=== PATIENT | female | born 1955 | race Caucasian/White ===

== ENCOUNTER 2017-12-25 20:00 | Emergency (ER) | payer OTHER ==
--- OUTSIDE RECORDS SUMMARY | 2017-12-25 20:03 | XMS REPORT | Clinical Summary ---
:1955 Author Organization [facility] Address [address] [place] [id number] Phone Care Team Providers Name Role Phone Unavailable Primary Care Provider Unavailable Allergies No Known Allergies Current Medications No known medications Active Problems Not on file Encounters Date Type Specialty Care Team Description 07/25/2017 Emergency Emergency Medicine Moises Quesada DO Acute URI ( Primary Dx) after 12/24/2016 Social History Tobacco Use Types Packs/Day Years Used Date Never Smoker Smokeless Tobacco: Never Used Alcohol Use Drinks/Week oz/Week Comments Yes Sex Assigned at Date Recorded Not on file Last Filed Vital Signs Vital Sign Reading Time Taken Blood Pressure 127/76 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 INDICATION: 61-year-old woman with influenza. COMPARISON: None. FINDINGS: LINES/TUBES: None. LUNGS: Nodular density projects over the left lower lung zone. The lungs are otherwise well inflated and clear. PLEURA: No pleural effusion or pneumothorax. HEART AND MEDIASTINUM: The cardiomediastinal silhouette is within normal limits. SOFT TISSUES AND BONES: Unremarkable. IMPRESSION: No acute cardiopulmonary abnormalities. Nodular density projecting over the left lower lung zone may represent nipple shadow, however pulmonary nodule cannot be excluded. Follow-up chest radiographs with nipple markers may be obtained. Alternatively, chest CT may be obtained. Signed: Luisa Tam MD Report Verified Date/Time:07/25/2017 12:47:21 Reading Location: [facility] C013Y CT Body Reading Room Procedure Note Interface, External Ris In - 07/25/2017 12:49 PM PIPE LINE INSPECTOR FINAL REPORT TECHNIQUE: Frontal and lateral views of the chest. INDICATION: 61-year-old woman with influenza. COMPARISON: None. FINDINGS: LINES/TUBES: None. LUNGS: Nodular density projects over the left lower lung zone. The lungs are otherwise well inflated and clear. PLEURA: No pleural effusion or pneumothorax. HEART AND MEDIASTINUM: The cardiomediastinal silhouette is within normal limits. SOFT TISSUES AND BONES: Unremarkable. IMPRESSION: No acute cardiopulmonary abnormalities. Nodular density projecting over the left lower lung zone may represent nipple shadow, however pulmonary nodule cannot be excluded. Follow-up chest radiographs with nipple markers may be obtained. Alternatively, chest CT may be obtained. Signed: Luisa Tam MD Report Verified Date/Time: 07/25/2017 12:47:21 Reading Location: [facility] C013Y CT Body Reading Room Rapid Influenza A&B Screen (07/25/2017 11:35 AM) Component Value Ref Range Rapid Influenza A Antigen Negative Negative, Inconclusive Rapid influenza B Antigen Negative Negative, Inconclusive Specimen Performing Laboratory Nasopharyngeal - Nasopharyngeal Swab [facility] [address] [place] [id number] after 12/24/2016
--- OUTSIDE RECORDS SUMMARY | 2017-12-25 20:03 | XMS REPORT ---
:1955 Author Organization [facility] Address [address] [place] [address] Dr. Rich [address] [place] [id number] Care Team Providers Name Role Phone REGI GOOD Unavailable Unavailable Problems This patient has no known problems. Allergies, Adverse Reactions, Alerts This patient has no known allergies or adverse reactions. Medications This patient has no known medications. Results Test Description Test Time Test Comments Text Results Atomic Results Result Comments RAD, CHEST, 2 2017-07-25 Reason for FINAL REPORT PATIENT ID: VIEWS 12:47:00 exam:->INFLUENZAat a [id number] TECHNIQUE: hospital since last week, Frontal and lateral views states has been feeling of the chest. INDICATION: bodyaches, headaches 61-year-old woman with congestion. influenza. COMPARISON: None. FINDINGS: LINES/TUBES: None. LUNGS: Nodular density projects over the left lower lung zone. The lungs are otherwise well inflated and clear. PLEURA: No pleural effusion or pneumothorax. HEART AND MEDIASTINUM: The cardiomediastinal silhouette is within normal limits. SOFT TISSUES AND BONES: Unremarkable. IMPRESSION:No acute cardiopulmonary abnormalities. Nodular density projecting over the left lower lung zone may represent nipple shadow, however pulmonary nodule cannot be excluded. Follow-up chest radiographs with nipple markers may be obtained. Alternatively, chest CT may be obtained. Signed: Luisa Tam MDReport Verified Date/Time: 07/25/2017 12:47:21 Reading Location: [facility] C013Y CT Body Reading Room D INFLUENZA A&B SCREEN 2017-07-25 12:11:00 Test Item Value Reference Range Comments RAPID INFLUENZA A AG (BEAKER) (test erpf=[id number]) Negative Negative, Inconclusive RAPID INFLUENZA B AG (BEAKER) (test rgfd=[id number]) Negative Negative, Inconclusive
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
== END 2017-12-25 21:16 | disposition home or self-care (01) ==
LOC: ER 20:00
DX: Z04.1 Encounter for examination and observation following transport accident (principal); V49.49XA Driver injured in collision with other motor vehicles in traffic accident, initial encounter; E78.5 Hyperlipidemia, unspecified
CPT/HCPCS: 99283

== ENCOUNTER 2020-05-22 15:46 | Emergency (ER) | payer OTHER ==
--- OUTSIDE RECORDS SUMMARY | 2020-05-22 15:48 | XMS REPORT | Clinical Summary ---
:1955 Author Organization [facility] Address [address] [place] [id number] Care Team Providers Name Role Phone Brando Primary Care Provider Allergies No Known Allergies Medications No known medications Active Problems Not on file Social History Tobacco Use Types Packs/Day Years Used Date Never Smoker Smokeless Tobacco: Never Used Alcohol Use Drinks/Week oz/Week Comments Yes Sex Assigned at Date Recorded Not on file Last Filed Vital Signs Not on file Plan of Treatment Not on file Results Not on fileafter 05/22/2019 Insurance Payer Benefit Plan / Subscriber ID Effective Dates Phone Addre ss Type Group [employer]ET[employer] - MGD AETNA HMO POS [id number] 2015-Present HMO/POS CARE QPOS
--- OUTSIDE RECORDS SUMMARY | 2020-05-22 15:48 | XMS REPORT | Continuity of Care Document ---
:1955 Author Organization [facility] Address [address] [place] [address] Care Team Providers Name Role Phone Matthieuóscar Primary Care Physician AHAALVIN Attending Clinician Unavailable Problems This patient has no known problems. Allergies, Adverse Reactions, Alerts This patient has no known allergies or adverse reactions. Social History Social Habit Start Date Stop Date Quantity Comments Source Sex Assigned At [facility] Tobacco use and 2017-07-25 2017-07-25 Never used [facility] - exposure 00:00:00 00:00:00 [facility] Alcohol intake 2017-07-25 2017-07-25 Current drinker [facility] [employer] - 00:00:00 00:00:00 of [facility] (finding) Smoking Status Start Date Stop Date Source Never smoker [facility] Medications This patient has no known medications. Procedures This patient has no known procedures. Results Test Description Test Time Test Comments Results Result [facility] e Comments RAD, CHEST, 2 2017-07-25 Reason for FINAL REPORT PATIENT VIEWS 12:47:00 exam:->INFLUENZ ID: [id number] Aat a hospital TECHNIQUE: Frontal and since last lateral views of the week, states chest. INDICATION: has been 61-year-old woman with feeling influenza. COMPARISON: bodyaches, None. FINDINGS: headaches LINES/TUBES: None. congestion. LUNGS: Nodular density projects over the left [...] Alternatively, chest CT may be obtained. Signed: Lesli Tam Verified Date/Time: 07/25/2017 12:47:21 Reading Location: [facility] B1 C013Y CT Body Reading Room D INFLUENZA A&B SCREEN 2017-07-25 12:11:00 Test Item Value Reference Range Interpretation Comme nts RAPID INFLUENZA A AG (BEAKER) (test code = 1622) Negative Negative, Inconclusive RAPID INFLUENZA B AG (BEAKER) (test code = 1623) Negative Negative, Inconclusive
--- NOTE | 2020-05-22 17:13 | RAD REPORT ---
EXAM DESCRIPTION: CT - CTHCSPWOC - 05/22/2020 5:04 pm CLINICAL HISTORY: fall, head injury COMPARISON: No comparisons TECHNIQUE: Axial 5 mm thick images of the head were obtained. Axial 2 mm thick images of the cervic al spine were obtained with sagittal and coronal reconstruction images generated and reviewed. All CT scans are performed using dose optimization technique as appropriate and may include automated exposure control or mA/KV adjustment according to patient size. FINDINGS: No intracranial hemorrhage, mass, edema or acute intracranial finding. No suspicion for ac cocopah infarction. No cortical edema or sulcal effacement. Mild atrophy changes are present. Ventricles are in proportion. No significant chronic ischemic change. Arterial and physiologic calcifications ar e present. Mastoid air cells are clear. Patient shows mixed acute and chronic right maxillary sinusit is. Wall thickening is present and there is inspissated mucus in addition to an air-fluid level. Patc hy mucosal thickening changes in the ethmoid air cells. Small air-fluid level in the sphenoid sinus w ithout suspicion for skull base fracture. No globe or orbit abnormality seen. No skull fracture. Cervical body height and alignment are normal. Patient has some component of disc space narrowing at all levels except C2-3. Findings are more pronounced at C5-6. Mild bilateral foraminal stenosis peraza es are present at C5-6 and C6-7. No facet joint alignment abnormality. No fracture or acute bony abno rmality. Central canal detail is inherently limited. No paraspinal mass or hematoma. IMPRESSION: No hemorrhage, edema or acute intracranial finding. Cervical spine degenerative change as detailed. No acute findings identified. Acute and chronic right maxillary sinusitis. Small sphenoid sinus air-fluid level is present without suspicion for skull base fracture.
--- NOTE | 2020-05-22 17:24 | ER ---
Nurse's Notes [facility] Name: Eliana Hercules Age: 64 yrs Sex: Female : 1955 Arrival Date: 05/22/2020 Time: 15:47 Bed 3 Private MD: Diagnosis: Unspecified injury of head Presentation: 05/22 15:52 Chief complaint: Patient states: fell down from the attic ladder, was about 6 steps up, sv hit the back of head on the cement. Denies LOC or vomiting. Not on any blood thinners. Coronavirus screen: Client denies travel out of the [place] in the last 14 days. At this time, the client does not indicate any symptoms associated with coronavirus-19. Ebola Screen: No symptoms or risks identified at this time. Risk Assessment: Do you want to hurt yourself or someone else? Patient reports no desire to harm self or others. Onset of symptoms was May 22, 2020. 15:52 Method Of Arrival: Ambulatory sv 15:52 Acuity: SHEILA 3 sv 15:53 Initial Sepsis Screen: Does the patient meet any 2 criteria? No. Patient's initial sv sepsis screen is negative. Does the patient have a suspected source of infection? No. Patient's initial sepsis screen is negative. Triage Assessment: 15:52 General: Appears in no apparent distress. well developed, Behavior is calm, sv cooperative, appropriate for age. Pain: Complains of pain in scalp. Neuro: Level of Consciousness is awake, alert, obeys commands, Oriented to person, place, time, situation, Moves all extremities. Full function Gait is steady. Respiratory: Respiratory effort is even, unlabored. Historical: - Allergies: 15:53 No Known Allergies; sv - PMHx: 15:53 Hyperlipidemia; sv 15:59 Hypertension; sv - PSHx: 15:53 ; sv - Immunization history:: Adult Immunizations. - Social history:: Smoking status: Patient denies any tobacco usage or history of. Screenin:22 Abuse screen: Denies threats or abuse. Nutritional screening: No deficits noted. ll1 Tuberculosis screening: No symptoms or risk factors identified. Fall Risk Mental Status- Overestimates/Forgets Limitations (15 pts.). Total Macias Fall Scale indicates No Risk (0-24 pts). Assessment: 16:21 General: Appears in no apparent distress. Behavior is calm, cooperative, appropriate ll1 for age. Pain: Denies pain. Neuro: Level of Consciousness is awake, alert, obeys commands, Oriented to person, place, time, situation, Appropriate for age Type Copyist are equal bilaterally Moves all extremities. Full function Speech is normal, Facial symmetry appears normal, Pupils are PERRLA, Reports headache hit back of head on concrete after falling down attic ladder stairs. Cardiovascular: No deficits noted. Respiratory: No deficits noted. GI: No deficits noted. Injury Description: Head injury sustained to scalp is closed, did not have loss of consciousness, was sustained 1-2 hours ago. 17:20 Reassessment: Patient and/or family updated on plan of care and expected duration. Pain ll1 level reassessed. Patient is alert, oriented x 3, equal unlabored respirations, skin warm/dry/pink. Vital Signs: 15:53 BP 149 / 92; Pulse 78; Resp 14; Temp 99.2(TE); Pulse Ox 98% ; Weight 79.38 kg; Height 5 sv ft. 6 in. (167.64 cm); 17:23 BP 143 / 78; Pulse 53; Resp 16; Pulse Ox 98% on R/A; ll1 17:39 BP 143 / 86; Pulse 53; Resp 16; Pulse Ox 99% ; Pain 0/10; ll1 15:53 Body Mass Index 28.25 (79.38 kg, 167.64 cm) sv ED Course: 15:47 Patient arrived in ED. ds1 15:51 Arm band placed on. sv 15:53 Triage completed. sv 15:58 Dustin Soliz PA is PHCP. [facility] 15:58 Robb Jordan MD is Attending Physician. [facility] 16:20 Russell Pérez, DENEEN is Primary Nurse. ll1 16:22 Patient has correct armband on for positive identification. Bed in low position. Call ll1 light in reach. Side rails up X 1. Cardiac monitoring not applicable on this patient. 17:04 CT Head C Spine In Process Unspecified. EDMS 17:39 No provider procedures requiring assistance completed. Patient did not have IV access ll1 during this emergency room visit. Administered Medications: No medications were administered Outcome: 17:24 Discharge ordered by . m 17:39 Discharged to home ambulatory. ll1 17:39 Condition: stable 17:39 Discharge instructions given to patient, Instructed on discharge instructions, follow up and referral plans. Demonstrated understanding of instructions, follow-up care. 17:40 Patient left the ED. ll1 Signatures: Dispatcher [employer] Viktoriya Alarcon, RN RN Dustin Soliz PA PA jmm Sanford, Radhika ds1 Russell Pérez RN RN ll1 Corrections: (The following items were deleted from the chart) 15:55 15:52 Chief complaint: Patient states: fell down from the attic ladder, was about 6 sv steps, hit the back of head on the cement. Denies LOC or vomiting. sv 15:55 15:53 Resp 14bpm; Pulse Ox 100%; Temp 99.2F Temporal; 79.38 kg; Height 5 ft. 6 in.; sv BMI: 28.2; sv 16:00 15:52 Chief complaint: Patient states: fell down from the attic ladder, was about 6 sv steps, hit the back of head on the cement. Denies LOC or vomiting. Not on any blood thinners. sv
--- NOTE | 2020-05-22 17:24 | EDPHYS ---
Physician Documentation [facility] Name: Eliana Hercules Age: 64 yrs Sex: Female : 1955 Arrival Date: 05/22/2020 Time: 15:47 Bed 3 Private MD: ED Physician Robb Jordan HPI: 05/22 16:32 This 64 yrs old Female presents to ER via Ambulatory with complaints of Fell jmm Off Ladder. 16:32 The patient or guardian reports injury. Onset: The symptoms/episode began/occurred jmm acutely, just prior to arrival. Associated signs and symptoms: Loss of consciousness: This patient did not experience any loss of consciousness. Pertinent negatives: the patient has not experienced a loss of conciousness, vomiting. This is a 64 year old female with a history of hlp, htn that presents to the ED with complaints of pain to the back of her head. Patient states she fell backwards while walking down the ladder to the attic. Denies loc, vomiting seizure like activity. . Historical: - Allergies: 15:53 No Known Allergies; sv - PMHx: 15:53 Hyperlipidemia; sv 15:59 Hypertension; sv - PSHx: 15:53 ; sv - Immunization history:: Adult Immunizations. - Social history:: Smoking status: Patient denies any tobacco usage or history of. ROS: 16:32 Constitutional: Negative for fever, chills, and weight loss, Cardiovascular: Negative jmm for chest pain, palpitations, and edema, Respiratory: Negative for shortness of breath, cough, wheezing, and pleuritic chest pain. 16:32 Neuro: Positive for headache. 16:32 All other systems are negative. Exam: 16:32 Constitutional: This is a well developed, well nourished patient who is awake, alert, jmm and in no acute distress. 16:32 Eyes: EOMI, no conjunctival erythema appreciated ENT: Moist Mucus Membranes Neck: Trachea midline, Supple Chest/axilla: Normal chest wall appearance and motion. Cardiovascular: Regular rate and rhythm. No edema appreciated Respiratory: Normal respirations, no respiratory distress appreciated Abdomen/GI: Non distended, soft Back: Normal ROM Skin: General appearance color normal MS/ Extremity: Moves all extremities, no obvious deformities appreciated, no edema noted to the lower extremities Neuro: Awake and alert, normal gait Psych: Behavior is normal, Mood is normal, Patient is cooperative and pleasant 16:32 Head/face: posterior hematoma noted. Vital Signs: 15:53 BP 149 / 92; Pulse 78; Resp 14; Temp 99.2(TE); Pulse Ox 98% ; Weight 79.38 kg; Height 5 sv ft. 6 in. (167.64 cm); 17:23 BP 143 / 78; Pulse 53; Resp 16; Pulse Ox 98% on R/A; ll1 17:39 BP 143 / 86; Pulse 53; Resp 16; Pulse Ox 99% ; Pain 0/10; ll1 15:53 Body Mass Index 28.25 (79.38 kg, 167.64 cm) sv MDM: 16:14 Patient medically screened. [facility] 17:22 Data reviewed: vital signs, nurses notes. Counseling: I had a detailed discussion with kvng the patient and/or guardian regarding: the historical points, exam findings, and any diagnostic results supporting the discharge/admit diagnosis, radiology results, the need for outpatient follow up, to return to the emergency department if symptoms worsen or persist or if there are any questions or concerns that arise at home. ED course: Patient is alert and non toxic in appearance. No neuro deficit appreciated. CT negative. Patient is given strict return precautions. Patient understood and agrees with the plan of care. . 05/22 16:17 Order name: CT Head C Spine; Complete Time: 17:22 juanis Administered Medications: No medications were administered Disposition: 05/23 15:57 Co-signature as Attending Physician, Robb Jordan MD I agree with the assessment and kdr plan of care. Disposition: 05/22/20 17:24 Discharged to Home. Impression: Unspecified injury of head. - Condition is Stable. - Discharge Instructions: Head Injury, Adult. - Medication Reconciliation Form, Thank You Letter, Antibiotic Education, Prescription Opioid Use form. - Follow up: Private Physician; When: 2 - 3 days; Reason: Recheck today's complaints, Continuance of care, Re-evaluation by your physician. Signatures: Dispatcher [employer] EDViktoriya Hagan RN RN sv Rittger, Kevin, MD MD kdr Mickail, Joel, PA PA jmm Lewis, Lynsay RN RN ll1 Corrections: (The following items were deleted from the chart) 05/22 17:40 17:24 05/22/2020 17:24 Discharged to Home. Impression: Unspecified injury of head. ll1 Condition is Stable. Forms are Medication Reconciliation Form, Thank You Letter, Antibiotic Education, Prescription Opioid Use. Follow up: Private Physician; When: 2 - 3 days; Reason: Recheck today's complaints, Continuance of care, Re-evaluation by your physician. kvng
[2020-05-22 18:20] VITALS: TEMP 99.2
[2020-05-22 18:23] VITALS: BP 143/86; O2SAT 99
== END 2020-05-22 17:40 | disposition home or self-care (01) ==
LOC: ER 15:46
DX: S00.83XA Contusion of other part of head, initial encounter (principal); W11.XXXA Fall on and from ladder, initial encounter; Y93.89 Activity, other specified; Y92.9 Unspecified place or not applicable; I10 Essential (primary) hypertension
CPT/HCPCS: 70450; 72125; 99283

== ENCOUNTER 2021-01-02 19:27 | Emergency (ER) | payer BC, OTHER ==
[2021-01-02 21:03] LABS: Absolute Lymphocytes (CBC) 2.7 K/uL (0.7-4.9); Basophils % 1.2 % (0-1.3); Lymphocytes % 35.8 % (15.3-44.8); MPV 12.3 fL (7.6-11.3); RBC Red Blood Cell Count 4.38 M/uL (3.86-4.86)
[2021-01-02 21:13] LABS: Protime INR 0.99
[2021-01-02 21:28] LABS: ALT/SGPT 34 U/L (12-78); AST/SGOT 18 U/L (15-37); Albumin 3.8 g/dL (3.4-5.0); Alkaline Phosphatase 81 U/L (45-117); BUN Blood Urea Nitrogen 19 mg/dL (7-18); Bicarbonate 26 mmol/L (21-32); Bilirubin Direct < 0.1 mg/dL (0-0.2); Bilirubin Total 0.2 mg/dL (0.2-1.0); Glucose Level 137 mg/dL (74-106); Magnesium 2.1 mg/dL (1.8-2.4); NT PRO-BNP 74 pg/mL (<125); Potassium 3.7 mmol/L (3.5-5.1); Protein, Total 7.2 g/dL (6.4-8.2); Sodium Level 140 mmol/L (136-145); Troponin (Emerg Dept Use Only) < 0.02 ng/mL (0.0-0.045)
[2021-01-02 21:38] LABS: Blood Morphology Comment NOT SEEN (NOT SEEN); Platelet Estimate DECR; Platelets, Giant 1+; White Blood Cell Scan OK (OK)
[2021-01-02 22:01] LABS: Urine Blood Negative (Negative); Urine Glucose Negative (Negative); Urine Protein Negative (Negative)
--- NOTE | 2021-01-02 22:46 | ER ---
Nurse's Notes [facility] Name: Eliana Hercules Age: 65 yrs Sex: Female : 1955 Arrival Date: 01/02/2021 Time: 19:28 Bed 19 Private MD: Diagnosis: Hypertension Presentation: 01/02 19:52 Chief complaint: Patient states: 'I was mowing the yard to day and felt the need to vg1 take my blood pressure; took it and it read 180's/90's. So I went to the pharmacy and took my blood pressure there and it said the same thing. I asked the pharmacist what I should do and he stated to take my next dose of Metoprolol. I first took it at noon then again at 1500. I think my high blood pressure might be due to stress.' Pt Denies Chest Pain, denies h/a, denies NVD. Coronavirus screen: Client denies travel out of the [place] in the last 14 days. Ebola Screen: Patient negative for fever greater than or equal to 101.5 degrees Fahrenheit, and additional compatible Ebola Virus Disease symptoms. Initial Sepsis Screen: Does the patient meet any 2 criteria? No. Patient's initial sepsis screen is negative. Does the patient have a suspected source of infection? No. Patient's initial sepsis screen is negative. Risk Assessment: Do you want to hurt yourself or someone else? Patient reports no desire to harm self or others. Onset of symptoms was January 02, 2021. 19:52 Method Of Arrival: Ambulatory vg1 19:52 Acuity: SHEILA 3 vg1 Triage Assessment: 19:56 General: Appears in no apparent distress. comfortable, Behavior is calm, cooperative. vg1 Pain: Denies pain. Historical: - Allergies: 19:56 No Known Allergies; vg1 - Home Meds: 19:56 pravastatin 20 mg Oral tab [Active]; metoprolol tartrate 25 mg Oral tab 1 tab 2 times vg1 per day [Active]; - PMHx: 19:56 Hyperlipidemia; Hypertension; vg1 - Immunization history:: Adult Immunizations up to date, Client reports receiving the 2nd dose of the Covid vaccine. - Social history:: Smoking status: Patient denies any tobacco usage or history of. Screenin:44 Abuse screen: Denies threats or abuse. Nutritional screening: No deficits noted. ap3 Tuberculosis screening: No symptoms or risk factors identified. Fall Risk None identified. Assessment: 20:21 General: Appears in no apparent distress. comfortable, Behavior is calm, cooperative, ap3 appropriate for age. Pain: Denies pain. Neuro: Level of Consciousness is awake, alert, obeys commands, Oriented to person, place, time, situation. Cardiovascular: Reports lightheadedness, Denies chest pain, shortness of breath. Respiratory: Airway is patent Respiratory effort is even, unlabored, Respiratory pattern is regular, symmetrical. GI: No signs and/or symptoms were reported involving the gastrointestinal system. : No signs and/or symptoms were reported regarding the genitourinary system. EENT: No signs and/or symptoms were reported regarding the EENT system. Derm: No signs and/or symptoms reported regarding the dermatologic system. 21:07 General: patient provided with urine specimen cup and education on how to collect a ap3 clean catch. Patient verbalized understanding. . 21:40 Reassessment: Patient and/or family updated on plan of care and expected duration. Pain ap3 level reassessed. Patient is alert, oriented x 3, equal unlabored respirations, skin warm/dry/pink. Vital Signs: 19:52 BP 186 / 91; Pulse 57; Resp 16; Temp 97.9(O); Pulse Ox 98% ; Weight 79.38 kg; Height 5 vg1 ft. 6 in. (167.64 cm); Pain 0/10; 20:44 BP 175 / 94; Pulse 53; Resp 17; Pulse Ox 99% on R/A; Pain 0/10; ap3 21:40 BP 172 / 90; Pulse 56; Resp 16; Pulse Ox 99% on R/A; Pain 0/10; ap3 19:52 Body Mass Index 28.25 (79.38 kg, 167.64 cm) vg1 ED Course: 19:28 Patient arrived in ED. bp1 19:48 Lynnette Garvey, DENEEN is Primary Nurse. ap3 19:52 Manjit Bill MD is Attending Physician. mh7 19:55 Triage completed. vg1 19:56 Arm band placed on. vg1 20:21 Inserted saline lock: 20 gauge in left antecubital area, using aseptic technique. Blood ap3 collected. 20:44 Patient has correct armband on for positive identification. Bed in low position. Call ap3 light in reach. Side rails up X 1. Pulse ox on. NIBP on. Door closed. Noise minimized. Lights dimmed. 21:33 XRAY Chest (1 view) In Process Unspecified. EDMS 22:55 No provider procedures requiring assistance completed. IV discontinued, intact, ap3 bleeding controlled, No redness/swelling at site. Pressure dressing applied. Administered Medications: No medications were administered Outcome: 22:45 Discharge ordered by . isidro 22:55 Discharged to home ambulatory. ap3 22:55 Condition: good 22:55 Discharge instructions given to patient, Instructed on discharge instructions, follow up and referral plans. Demonstrated understanding of instructions, follow-up care. 22:56 Patient left the ED. ap3 Signatures: Dispatcher [employer] EDMS Lynnette Garvey RN RN ap3 Lana Mathew RN RN vg1 Louise Engle Maurice, MD MD [facility]
--- NOTE | 2021-01-02 22:46 | EDPHYS ---
Physician Documentation [facility] Name: Eliana Hercules Age: 65 yrs Sex: Female : 1955 Arrival Date: 01/02/2021 Time: 19:28 Bed 19 Private MD: ED Physician Manjit Bill HPI: 01/02 22:15 This 65 yrs old Female presents to ER via Ambulatory with complaints of High mh7 Blood Pressure. 22:15 The patient has elevated blood pressure and discovered this at home, with a home mh7 device. Onset: The symptoms/episode began/occurred this morning, today. Modifying factors: The symptoms are aggravated by activity, The symptoms are alleviated by prescription meds, beta-lane. Associated signs and symptoms: Pertinent negatives: chest pain, dizziness, dyspnea, headache, lightheadedness, nausea, visual changes, vomiting, weakness. Severity of symptoms: At its worst the blood pressure was 180 mm Hg, in the emergency department the blood pressure is improved, moderately. Historical: - Allergies: 19:56 No Known Allergies; vg1 - Home Meds: 19:56 pravastatin 20 mg Oral tab [Active]; metoprolol tartrate 25 mg Oral tab 1 tab 2 times vg1 per day [Active]; - PMHx: 19:56 Hyperlipidemia; Hypertension; vg1 - Immunization history:: Adult Immunizations up to date, Client reports receiving the 2nd dose of the Covid vaccine. - Social history:: Smoking status: Patient denies any tobacco usage or history of. ROS: 22:15 Constitutional: Negative for fever, chills, and weight loss, Eyes: Negative for injury, mh7 pain, redness, and discharge, ENT: Negative for injury, pain, and discharge, Neck: Negative for injury, pain, and swelling, Cardiovascular: Negative for chest pain, palpitations, and edema, Respiratory: Negative for shortness of breath, cough, wheezing, and pleuritic chest pain, Abdomen/GI: Negative for abdominal pain, nausea, vomiting, diarrhea, and constipation, Back: Negative for injury and pain, : Negative for injury, bleeding, discharge, and swelling, MS/Extremity: Negative for injury and deformity, Skin: Negative for injury, rash, and discoloration, Neuro: Negative for headache, weakness, numbness, tingling, and seizure, Psych: Negative for depression, anxiety, suicide ideation, homicidal ideation, and hallucinations, Allergy/Immunology: Negative for hives, rash, and allergies, Endocrine: Negative for neck swelling, polydipsia, polyuria, polyphagia, and marked weight changes, Hematologic/Lymphatic: Negative for swollen nodes, abnormal bleeding, and unusual bruising. Exam: 22:15 Constitutional: This is a well developed, well nourished patient who is awake, alert, mh7 and in no acute distress. Head/Face: Normocephalic, atraumatic. Eyes: Pupils equal round and reactive to light, extra-ocular motions intact. Lids and lashes normal. Conjunctiva and sclera are non-icteric and not injected. Cornea within normal limits. Periorbital areas with no swelling, redness, or edema. Neck: Trachea midline, no thyromegaly or masses palpated, and no cervical lymphadenopathy. Supple, full range of motion without nuchal rigidity, or vertebral point tenderness. No Meningismus. Chest/axilla: Normal chest wall appearance and motion. Nontender with no deformity. No lesions are appreciated. Cardiovascular: Regular rate and rhythm with a normal S1 and S2. No gallops, murmurs, or rubs. Normal PMI, no JVD. No pulse deficits. Respiratory: Lungs have equal breath sounds bilaterally, clear to auscultation and percussion. No rales, rhonchi or wheezes noted. No increased work of breathing, no retractions or nasal flaring. Abdomen/GI: Soft, non-tender, with normal bowel sounds. No distension or tympany. No guarding or rebound. No evidence of tenderness throughout. Back: No spinal tenderness. No costovertebral tenderness. Full range of motion. Skin: Warm, dry with normal turgor. Normal color with no rashes, no lesions, and no evidence of cellulitis. MS/ Extremity: Pulses equal, no cyanosis. Neurovascular intact. Full, normal range of motion. Neuro: Awake and alert, GCS 15, oriented to person, place, time, and situation. Cranial nerves II-XII grossly intact. Motor strength 5/5 in all extremities. Sensory grossly intact. Cerebellar exam normal. Normal gait. Psych: Awake, alert, with orientation to person, place and time. Behavior, mood, and affect are within normal limits. Vital Signs: 19:52 BP 186 / 91; Pulse 57; Resp 16; Temp 97.9(O); Pulse Ox 98% ; Weight 79.38 kg; Height 5 vg1 ft. 6 in. (167.64 cm); Pain 0/10; 20:44 BP 175 / 94; Pulse 53; Resp 17; Pulse Ox 99% on R/A; Pain 0/10; ap3 21:40 BP 172 / 90; Pulse 56; Resp 16; Pulse Ox 99% on R/A; Pain 0/10; ap3 19:52 Body Mass Index 28.25 (79.38 kg, 167.64 cm) vg1 MDM: 22:43 Differential diagnosis: hypertensive crisis, Malignant HTN, Hypertension. Data [facility] reviewed: vital signs, nurses notes, lab test result(s), cardiac enzymes, CBC, electrolytes, urinalysis, EKG, radiologic studies, plain films. Data interpreted: Pulse oximetry: on room air is 99 %. Interpretation: normal. Counseling: I had a detailed discussion with the patient and/or guardian regarding: the historical points, exam findings, and any diagnostic results supporting the discharge/admit diagnosis, the presence of at least one elevated blood pressure reading (>120/80) during this emergency department visit, lab results, radiology results, the need for outpatient follow up. Response to treatment: the patient's symptoms have markedly improved after treatment. 22:45 Patient medically screened. [facility] 01/02 20:45 Order name: Basic Metabolic Panel; Complete Time: 22:02 [facility] 01/02 20:45 Order name: CBC with Diff; Complete Time: 22:02 [facility] 01/02 20:45 Order name: LFT's; Complete Time: 22:02 [facility] 01/02 20:45 Order name: Magnesium; Complete Time: 22:02 [facility] 01/02 20:45 Order name: NT PRO-BNP; Complete Time: 22:02 [facility] 01/02 20:45 Order name: PT-INR; Complete Time: 22:02 [facility] 01/02 20:45 Order name: Troponin (emerg Dept Use Only); Complete Time: 22:02 [facility] 01/02 20:45 Order name: XRAY Chest (1 view) [facility] 01/02 20:45 Order name: EKG; Complete Time: 20:45 [facility] 01/02 20:45 Order name: Cardiac monitoring; Complete Time: 20:46 [facility] 01/02 20:45 Order name: EKG - Nurse/Tech; Complete Time: 21:02 [facility] 01/02 20:45 Order name: IV Saline Lock; Complete Time: 20:46 [facility] 01/02 21:38 Order name: CBC Smear Scan; Complete Time: 22:02 [facility] 01/02 22:00 Order name: Urine Dipstick-Ancillary; Complete Time: 22:02 [facility] 20:45 Order name: Labs collected and sent; Complete Time: 21:02 [facility] 01/02 20:45 Order name: O2 Per Protocol; Complete Time: 20:46 [facility] 01/02 20:45 Order name: O2 Sat Monitoring; Complete Time: 20:46 [facility] 01/02 20:45 Order name: Urine Dipstick-Ancillary (obtain specimen); Complete Time: 22:08 [facility] Administered Medications: No medications were administered Disposition: 01/02/21 22:45 Discharged to Home. Impression: Hypertension. - Condition is Stable. - Discharge Instructions: Hypertension. - Medication Reconciliation Form, Thank You Letter, Antibiotic Education, Prescription Opioid Use form. - Follow up: Private Physician; When: 1 - 2 days; Reason: Worsening of condition, Recheck today's complaints, Continuance of care, Re-evaluation by your physician. - Problem is an acute exacerbation. - Symptoms have improved. Signatures: Dispatcher [employer] [facility] Lynnette Garvey RN RN ap3 Lana Mathew RN RN vg1 Manjit Bill MD MD 7 Corrections: (The following items were deleted from the chart) 22:56 22:45 01/02/2021 22:45 Discharged to Home. Impression: Hypertension. Condition is ap3 Stable. Forms are Medication Reconciliation Form, Thank You Letter, Antibiotic Education, Prescription Opioid Use. Follow up: Private Physician; When: 1 - 2 days; Reason: Worsening of condition, Recheck today's complaints, Continuance of care, Re-evaluation by your physician. Problem is an acute exacerbation. Symptoms have improved. 7
[2021-01-02 23:06] VITALS: TEMP 97.9
[2021-01-02 23:07] VITALS: O2SAT 99
[2021-01-02 23:09] VITALS: BP 172/90
--- NOTE | 2021-01-03 08:24 | RAD REPORT ---
EXAM DESCRIPTION: RAD - Chest Single View - 01/02/2021 9:33 pm CLINICAL HISTORY: hypertension COMPARISON: Two view chest October 2008 TECHNIQUE: AP portable chest image was obtained 01/02/2021 9:33 pm . FINDINGS: Lungs are clear. Heart and vasculature are normal. No measurable pleural effusion and no p neumothorax. No acute bony abnormality seen. No acute aortic findings suspected. IMPRESSION: No acute cardiopulmonary process.
== END 2021-01-02 22:56 | disposition home or self-care (01) ==
LOC: ER 19:27
DX: I10 Essential (primary) hypertension (principal); E78.5 Hyperlipidemia, unspecified
CPT/HCPCS: 36415; 71045; 80048; 80076; 81003; 83735; 83880; 84484; 85025; 85610; 93005; 99284